=== PATIENT | male | born 1965 | race Caucasian/White ===

== ENCOUNTER 2021-10-04 05:51 | Day surgery (SDC) | payer BC ==
[~2021-10-04 05:51] MED LIST: Dextrose 5%-0.45% NaCl 1,000 ML IV SCH; Midazolam 1 MG/ML 2 ML SDV ONE; Sodium Chloride 0.9% 10 ML Syringe FLUSH SCH; fentaNYL 100 MCG/2 ML SDV ONE
[2021-10-04] MEDS ORDERED: fentaNYL 100 MCG/2 ML SDV IV ONE ×3 (05:52→07:01)
[2021-10-04] MEDS ORDERED: Midazolam 1 MG/ML 2 ML SDV IV ONE ×7 (05:52→07:14)
[2021-10-04] MEDS ORDERED: Dextrose 5%-0.45% NaCl 1,000 ML IV SCH (06:00)
--- NOTE | 2021-10-04 09:37 | OR ---
DATE: 10/04/2021 PROCEDURES: Total colonoscopy, narrow band imaging, and multiple cold snare polypectomies. INSTRUMENT USED: [id number] Olympus video colonoscope. PREMEDICATIONS: Fentanyl 100 mcg intravenous, Versed 4 mg intravenous. The procedure was done under pulse oximetry, BP recording, and cardiac cath lab radiology technologist. INDICATION: Screening colonoscopic examination is done for detection of any polypoid lesions and removal, endoscopic hemostasis therapy if needed. DESCRIPTION OF PROCEDURE: Initial rectal exam was unremarkable. Rigid anoscopy was normal. The colonoscope was passed with ease up to the ileocecal area. Photographs were taken of the normal-appearing cecum identified by appendiceal orifice and double-bulged ileocecal folds. No bleeding was noted from any of the visualized areas at the commencement of the examination. The bowel preparation was found to be adequate, [place] scale 2 in right colon, 3 in transverse and left colon, total score 8. In the distal descending colon, 5 mm sized benign-appearing polyp was noted, photograph was taken, cold snare polypectomy was done, the tissue was retrieved and sent for histopathology. In the hepatic flexure area, another 5 mm sized benign-appearing polyp was noted, photograph was taken, cold snare polypectomy was done, the tissue was retrieved and sent for histopathology. No stricture. No vascular ectasia. No large isolated ulcerations seen. No evidence of diffuse inflammatory bowel disease in the form of friability, contact bleeding, or ulcerations. In the distal descending colon, submucosal benign lesion was noted with positive pillow sign, consistent with lipoma, NBI views were obtained. Photographs were taken. Probing the proximal sides of folds and flexures using adequate distention and clearing up the stool material, withdrawal of the scope was made, cecum to rectum time over 9 minutes. No bleeding was noted from any of the visualized areas at the completion of examination. IMPRESSION: 1. Multiple colonic polyps. 2. Submucosal benign lesion, descending colon. The patient tolerated the procedure well. [facility] [place] /[id number]
== END 2021-10-04 09:40 | disposition home or self-care (01) ==
LOC: DL.ENDO 05:51
PROVIDERS: ATTEND Internal Medicine Gastroenterology
DX: Z12.11 Encounter for screening for malignant neoplasm of colon (principal); D12.4 Benign neoplasm of descending colon; D12.3 Benign neoplasm of transverse colon; E66.01 Morbid (severe) obesity due to excess calories; E78.5 Hyperlipidemia, unspecified; I10 Essential (primary) hypertension; Z98.890 Other specified postprocedural states; Z68.25 Body mass index [BMI] 25.0-25.9, adult
CPT/HCPCS: 45385; J2250; J3010; J7042